=== PATIENT | male | born 1965 | race Caucasian/White ===

== ENCOUNTER → 2020-03-13 | Outpatient (REF) | payer BC ==
[2020-03-13 17:57] LABS: MAU/CREAT RATIO 7.2 MCG/MG (0.0-30.0)
== END ==
LOC: M LAB REF 16:58
PROVIDERS: ATTEND Internal Medicine Endocrinology, Diabetes & Metabolism
DX: E78.00 Pure hypercholesterolemia, unspecified (principal)

== ENCOUNTER 2024-07-03 18:41 | Inpatient (IN) | payer BC, OTHER ==
[~2024-07-03] VITALS: Ht 172.7 cm; Wt 111.0 kg
[2024-07-03] MEDS: ONDANSETRON 4MG 2ML VIAL IV ONE (19:55)
[2024-07-03] MEDS: NS 500 ML IV ONE (19:55)
[2024-07-03 21:09] LABS: BASO % 0.3 % (0.0-1.0); EOS # 0.2 10^3/uL (0.0-0.5); EOS % 2.6 % (0.0-3.0); HEMATOCRIT 44.8 % (42.0-52.0); HEMOGLOBIN 14.8 g/dl (13.5-17.5); LYMPH # 1.1 10^3/uL (1.5-5.0); LYMPH % 12.7 % (24.0-44.0); MEAN CORPUSCULAR HEMOGLOBIN 30.6 pg (27.0-33.0); MEAN CORPUSCULAR VOLUME 92.8 fl (80.0-96.0); MONO # 1.1 10^3/uL (0.0-0.8); MONO % 12.3 % (2.0-8.0); NEUTROPHILS # 6.4 10^3/uL (1.5-8.5); NEUTROPHILS % 71.7 % (36.0-66.0); PLATELET COUNT, AUTOMATED 171 10^3/uL (150-450); RED BLOOD COUNT 4.83 10^6/uL (4.30-6.10); WHITE BLOOD COUNT 8.9 10^3/uL (4.0-10.0)
[2024-07-03 21:42] LABS: ALBUMIN 2.7 G/DL (3.2-5.2); BILIRUBIN,TOTAL 5.2 MG/DL (0.3-1.2); CALCIUM LEVEL 7.6 MG/DL (8.5-10.1); CREATININE FOR GFR 3.39 MG/DL (0.70-1.30); GLOMERULAR FILTRATION RATE 19.9 (>56); POTASSIUM SERUM 5.1 MMOL/L (3.5-5.1); TOTAL PROTEIN 5.7 G/DL (5.7-8.2)
[2024-07-03] MEDS: INSULIN LISPRO (NovoLOG) PER UNIT SC SCH (23:33)
[2024-07-04] MEDS ORDERED: MOM 30ML SUSPENSION UDC PO PRN (01:15)
[2024-07-04] MEDS ORDERED: GLUCOSE 4 GM CHEW PO PRN (01:15)
[2024-07-04] MEDS ORDERED: GLUCAGON INJ 1MG VIAL SC PRN (01:15)
[2024-07-04] MEDS ORDERED: ACETAMINOPHEN 325 MG TAB PO PRN (01:15)
[2024-07-04] MEDS ORDERED: INSU100V3 SQ (01:52)
[2024-07-04] MEDS ORDERED: ASPI81TA26 PO (01:52)
[2024-07-04] MEDS ORDERED: ATOR80TA59 PO (01:52)
[2024-07-04] MEDS ORDERED: HUMA100I5 SC (01:52)
[2024-07-04] MEDS ORDERED: BUSP15TA47 PO (01:52)
[2024-07-04] MEDS ORDERED: POTA-298 PO (01:52)
[2024-07-04] MEDS ORDERED: LEVO112T2 PO (01:52)
[2024-07-04] MEDS ORDERED: SPIR-10 PO (01:52)
[2024-07-04] MEDS ORDERED: CIAL20TA PO (01:52)
[2024-07-04] MEDS ORDERED: METO1TAB87 PO (01:52)
[2024-07-04] MEDS ORDERED: FURO40TA2 PO (01:52)
[2024-07-04] MEDS ORDERED: TORS100T PO (01:52)
[2024-07-04] MEDS ORDERED: BUPR-597 PO (01:52)
[2024-07-04] MEDS ORDERED: METF750T36 PO (01:52)
[2024-07-04] MEDS ORDERED: VENL150C43 PO (01:52)
[2024-07-04] MEDS ORDERED: HOME MED LIST COMPLETE! XX SCH (01:55)
[2024-07-04 02:37] LABS: MAGNESIUM LEVEL 2.9 MG/DL (1.8-2.4)
[2024-07-04 03:17] LABS: PROCALCITONIN 1.17 ng/ml
[2024-07-04] MEDS: MIDODRINE 5 MG TAB PO ONE (04:27)
[2024-07-04] MEDS: FUROSEMIDE 100MG/10ML VIAL IV ONE (04:27)
[2024-07-04] MEDS: cefTRIAXone SOD 2 GM in DEXTROSE 5% (D5W) ADV/MINI-BAG 50 ML IV SCH (05:07)
[2024-07-04 06:24] LABS: HEMATOCRIT 47.1 % (42.0-52.0); HEMOGLOBIN 15.5 g/dl (13.5-17.5); MEAN CORPUSCULAR HGB CONC 32.9 g/dl (32.0-36.5); MEAN CORPUSCULAR VOLUME 91.3 fl (80.0-96.0); PLATELET COUNT, AUTOMATED 197 10^3/uL (150-450); RED BLOOD COUNT 5.16 10^6/uL (4.30-6.10); WHITE BLOOD COUNT 9.4 10^3/uL (4.0-10.0)
[2024-07-04] MEDS: DOXYCYCLINE HYCLATE 100 MG in DEXTROSE 5% (D5W) MINI-BAG PLU 100 ML IV SCH (06:40)
[2024-07-04] MEDS: LEVOTHYROXINE 112MCG TABLET (0.112MG) PO SCH (06:55)
[2024-07-04 07:03] LABS: HEPATITIS B SURFACE ANTIBODY NEGATIVE (POSITIVE)
[2024-07-04 07:16] LABS: HEPATITIS B SURFACE ANTIGEN NEGATIVE (NEGATIVE)
[2024-07-04 07:36] LABS: HEPATITIS B CORE ANTIBODY IGM NEGATIVE (NEGATIVE)
[2024-07-04 07:37] LABS: ALBUMIN 2.9 G/DL (3.2-5.2); ALKALINE PHOSPHATASE 433 U/L (40-129); ALT/SGPT 2009 U/L (7.0-40); AST/SGOT 2087 U/L (<34); BILIRUBIN,TOTAL 5.9 MG/DL (0.3-1.2); BLOOD UREA NITROGEN 61 MG/DL (9-23); CALCIUM LEVEL 7.8 MG/DL (8.5-10.1); CARBON DIOXIDE LEVEL 25 MMOL/L (20-31); CHLORIDE LEVEL 94 MMOL/L (98-107); CREATININE FOR GFR 3.98 MG/DL (0.70-1.30); FERRITIN 2158.1 NG/ML (10.5-307.3); GLOMERULAR FILTRATION RATE 16.5 (>56); GLUCOSE, FASTING 113 MG/DL (60-100); POTASSIUM SERUM 5.2 MMOL/L (3.5-5.1); SODIUM LEVEL 130 MMOL/L (136-145); TOTAL PROTEIN 6.1 G/DL (5.7-8.2)
[2024-07-04 07:58] LABS: CK-MB VALUE MASS 5.4 NG/ML (<3.6)
[2024-07-04 08:10] LABS: MB/CK RELATIVE INDEX 0.46 (< OR =4)
[2024-07-04] MEDS ORDERED: METOPROLOL TART 25 MG TABLET PO SCH (09:00)
[2024-07-04] MEDS ORDERED: POTASSIUM CHLORIDE 10MEQ SR TABLET PO SCH (09:00)
[2024-07-04] MEDS ORDERED: SPIRONOLACTONE 25 MG TAB PO SCH (09:00)
[2024-07-04] MEDS ORDERED: FUROSEMIDE 40MG/4ML VIAL IV SCH (09:00)
[2024-07-04] MEDS: HEPARIN SOD (PORCINE) 5000UNITS/ML 1ML VIAL/SYRINGE SC SCH (09:12)
[2024-07-04] MEDS: VENLAFAXINE **XR** 75MG CAPSULE PO SCH (09:13)
[2024-07-04] MEDS: buPROPion **XL** TABLET 150MG (WELLBUTRIN XL) PO SCH (09:13)
[2024-07-04] MEDS: ASPIRIN 81MG ENTERIC TABLET PO SCH (09:14)
[2024-07-04] MEDS: busPIRone 5 MG TAB PO SCH (09:14)
[2024-07-04] MEDS: INSULIN LISPRO (NovoLOG) PER UNIT SC SCH (09:14)
[2024-07-04 09:24] LABS: INR 1.92; PARTIAL THROMBOPLASTIN TIME 31.8 SECONDS (24.8-34.2); PROTHROMBIN TIME 22.1 SECONDS (12.5-14.5)
[2024-07-04 11:36] LABS: KETONE, URINE AUTO RFX NEGATIVE (NEGATIVE); LEUKOCYTE ESTERASE UR AUTO RFX NEGATIVE (NEGATIVE); MUCUS, URINE RFX SMALL (NEGATIVE); NITRITE, URINE AUTO RFX NEGATIVE (NEGATIVE); RBC, URINE AUTO RFX 6 /HPF (0-3); SQUAM EPITHELIAL CELL UR AURFX 1 /HPF (0-6)
[2024-07-04 11:37] LABS: WBC, URINE AUTO RFX 21 /HPF (0-3)
[2024-07-04] MEDS ORDERED: INSULIN PUMP (PATIENT'S OWN MED) SC SCH (13:55)
[2024-07-04] MEDS: FUROSEMIDE injection 100 MG, VIAL 2 BAG 13MM ADAPTER 1 EACH in NS 100 ML IV SCH (15:04)
[2024-07-04 17:09] VITALS: BP 95/63; TEMP 97.6; O2SAT 97
[2024-07-04 19:20] VITALS: BP 97/64; TEMP 97.8; O2SAT 94
[2024-07-04] MEDS: DOXYCYCLINE HYCLATE 100MG TABLET PO SCH (20:21)
[2024-07-04] MEDS ORDERED: INSULIN LISPRO (NovoLOG) PER UNIT SC SCH (21:00)
[2024-07-04 23:14] VITALS: BP 82/48; TEMP 97.9; O2SAT 95
[2024-07-04 23:45] VITALS: BP 104/65
[2024-07-05 04:00] VITALS: BP 116/69; TEMP 96.8; O2SAT 96
[2024-07-05] MEDS: DEXTROSE 50% 50ML SYRINGE IV PRN (05:32)
[2024-07-05 06:23] LABS: HEMOGLOBIN 14.1 g/dl (13.5-17.5); MEAN CORPUSCULAR HEMOGLOBIN 29.7 pg (27.0-33.0); MEAN CORPUSCULAR HGB CONC 32.8 g/dl (32.0-36.5); MEAN CORPUSCULAR VOLUME 90.5 fl (80.0-96.0); PLATELET COUNT, AUTOMATED 158 10^3/uL (150-450); RED BLOOD COUNT 4.75 10^6/uL (4.30-6.10); WHITE BLOOD COUNT 8.5 10^3/uL (4.0-10.0)
[2024-07-05 06:52] LABS: CK-MB VALUE MASS 5.5 NG/ML (<3.6)
[2024-07-05 06:55] LABS: MB/CK RELATIVE INDEX 0.53 (< OR =4)
[2024-07-05 07:38] LABS: ALBUMIN 2.5 G/DL (3.2-5.2); BILIRUBIN,TOTAL 7.5 MG/DL (0.3-1.2); CALCIUM LEVEL 7.4 MG/DL (8.5-10.1); CREATININE FOR GFR 5.24 MG/DL (0.70-1.30); POTASSIUM SERUM 4.7 MMOL/L (3.5-5.1); TOTAL PROTEIN 5.5 G/DL (5.7-8.2)
[2024-07-05 07:43] VITALS: BP 104/71; TEMP 97.5; O2SAT 96
[2024-07-05 12:04] VITALS: BP 105/71; TEMP 98; O2SAT 96
[2024-07-05 12:41] LABS: COMPLEMENT C3 92.5 MG/DL (90.0-170.0); COMPLEMENT C4 17.8 MG/DL (12-36)
[2024-07-05 12:49] LABS: HEPATITIS B SURFACE ANTIBODY NEGATIVE (POSITIVE)
[2024-07-05 13:00] LABS: HEPATITIS B SURFACE ANTIGEN NEGATIVE (NEGATIVE)
[2024-07-05 13:21] LABS: HEPATITIS C VIRUS ABY INDEX 0.14 INDEX (<0.8)
[2024-07-05 13:22] LABS: HEPATITIS B CORE ANTIBODY IGM NEGATIVE (NEGATIVE)
[2024-07-05] MEDS ORDERED: SODIUM CHLORIDE 0.9% 1000 ML IV PRN (13:35)
[2024-07-05] MEDS ORDERED: HEPARIN 1,000UNITS/ML 10ML VIAL (FOR RADIOLOGY & DIALYSIS ONLY) IV PRN (13:40)
[2024-07-05] MEDS ORDERED: LIDOCAINE 1% SDV 5ML VIAL SC PRN (13:40)
[2024-07-05] MEDS: MIDODRINE 5 MG TAB PO SCH (14:51)
[2024-07-05 15:47] LABS: HEPATITIS A IgG TOTAL REACTIVE (NON-REACTIVE)
[2024-07-05] MEDS: HEPARIN 1,000UNITS/ML 10ML VIAL (FOR RADIOLOGY & DIALYSIS ONLY) XX SCH (15:55)
[2024-07-05 18:19] VITALS: BP 110/67; TEMP 97.7; O2SAT 95
[2024-07-05 20:00] VITALS: BP 118/74; TEMP 97.6; O2SAT 96
[2024-07-05 23:50] VITALS: BP 111/60; TEMP 97.6; O2SAT 96
[2024-07-06 04:14] VITALS: BP 101/59; TEMP 97.7; O2SAT 96
[2024-07-06] MEDS ORDERED: LIDOCAINE 1% SDV 5ML VIAL SC PRN ×2 (06:00)
[2024-07-06] MEDS ORDERED: HEPARIN 1,000UNITS/ML 10ML VIAL (FOR RADIOLOGY & DIALYSIS ONLY) IV PRN ×2 (06:00)
[2024-07-06] MEDS ORDERED: SODIUM CHLORIDE 0.9% 1000 ML IV PRN ×2 (06:00)
[2024-07-06] MEDS ORDERED: HEPARIN 1,000UNITS/ML 10ML VIAL (FOR RADIOLOGY & DIALYSIS ONLY) XX SCH (06:00)
[2024-07-06 07:48] VITALS: BP 98/60; TEMP 97.6; O2SAT 97
[2024-07-06 07:50] LABS: HEMATOCRIT 42.2 % (42.0-52.0); HEMOGLOBIN 14.2 g/dl (13.5-17.5); MEAN CORPUSCULAR HEMOGLOBIN 30.6 pg (27.0-33.0); MEAN CORPUSCULAR HGB CONC 33.6 g/dl (32.0-36.5); MEAN CORPUSCULAR VOLUME 90.9 fl (80.0-96.0); PLATELET COUNT, AUTOMATED 118 10^3/uL (150-450); RED BLOOD COUNT 4.64 10^6/uL (4.30-6.10); WHITE BLOOD COUNT 7.3 10^3/uL (4.0-10.0)
[2024-07-06 08:02] LABS: T P ELECTROPHORESIS SO 5.6 g/dL (6.1-8.1)
[2024-07-06 08:17] LABS: CK-MB VALUE MASS 4.9 NG/ML (<3.6)
[2024-07-06 08:21] LABS: MB/CK RELATIVE INDEX 0.74 (< OR =4)
[2024-07-06 08:52] LABS: ALBUMIN 2.4 G/DL (3.2-5.2); BILIRUBIN,TOTAL 9.5 MG/DL (0.3-1.2); CALCIUM LEVEL 7.6 MG/DL (8.5-10.1); CREATININE FOR GFR 5.19 MG/DL (0.70-1.30); GLOMERULAR FILTRATION RATE 12.2 (>56); POTASSIUM SERUM 5.1 MMOL/L (3.5-5.1); TOTAL PROTEIN 5.4 G/DL (5.7-8.2)
[2024-07-06 08:58] LABS: HCV RNA QUANTITATION <15 NOT DETECTED IU/mL (NOT DETECTED); HCV RNA log10 <1.18 NOT DETECTED Log IU/mL (NOT DETECTED)
[2024-07-06] MEDS: HEPARIN 1,000UNITS/ML 10ML VIAL (FOR RADIOLOGY & DIALYSIS ONLY) XX SCH (09:23)
[2024-07-06 12:49] VITALS: BP 96/55; TEMP 97.7; O2SAT 98
[2024-07-06 13:02] LABS: HEPATITIS B CORE ANTIBODY IGG NON-REACTIVE (NON-REACTIVE)
[2024-07-06 14:11] LABS: FREE KAPPA LIGHT CHAINS SERUM 95.1 mg/L (3.3-19.4); FREE LAMBDA LIGHT CHAINS SERUM 36.3 mg/L (5.7-26.3); KAPPA/LAMBDA RATIO SERUM 2.62 (0.26-1.65)
[2024-07-06 16:51] VITALS: BP 100/57; TEMP 97.4; O2SAT 95
[2024-07-06 19:17] VITALS: BP 101/64; TEMP 97; O2SAT 94
[2024-07-06 23:06] VITALS: BP 109/63; TEMP 97.2; O2SAT 93
[2024-07-07] VITALS (7 sets, daily range): BP systolic 102–130; BP diastolic 68–82; TEMP 97–97.6; O2SAT 93–96
[2024-07-07 05:48] LABS: MEAN CORPUSCULAR HGB CONC 33.3 g/dl (32.0-36.5); MEAN CORPUSCULAR VOLUME 90.1 fl (80.0-96.0); PLATELET COUNT, AUTOMATED 100 10^3/uL (150-450); RED BLOOD COUNT 4.66 10^6/uL (4.30-6.10); WHITE BLOOD COUNT 7.2 10^3/uL (4.0-10.0)
[2024-07-07 06:09] LABS: CK-MB VALUE MASS 6.8 NG/ML (<3.6)
[2024-07-07 06:10] LABS: ALBUMIN 2.3 G/DL (3.2-5.2); BILIRUBIN,TOTAL 9.1 MG/DL (0.3-1.2); CALCIUM LEVEL 7.3 MG/DL (8.5-10.1); CREATININE FOR GFR 5.07 MG/DL (0.70-1.30); GLOMERULAR FILTRATION RATE 12.5 (>56); POTASSIUM SERUM 5.4 MMOL/L (3.5-5.1); TOTAL PROTEIN 5.3 G/DL (5.7-8.2)
[2024-07-07 06:12] LABS: MB/CK RELATIVE INDEX 1.86 (< OR =4)
[2024-07-07] MEDS ORDERED: SODIUM CHLORIDE 0.9% 1000 ML IV PRN (06:25)
[2024-07-07] MEDS ORDERED: HEPARIN 1,000UNITS/ML 10ML VIAL (FOR RADIOLOGY & DIALYSIS ONLY) IV PRN (06:25)
[2024-07-07] MEDS ORDERED: INSULIN LISPRO (NovoLOG) PER UNIT SC SCH ×2 (07:30→21:00)
[2024-07-07] MEDS ORDERED: CEFTRIAXONE SOD IV SCH (07:37)
[2024-07-07] MEDS ORDERED: NS IV SCH (07:37)
[2024-07-07] MEDS ORDERED: LEVEMIR (INSULIN DETEMIR) 1 UNITS/0.01ML SC SCH (09:00)
[2024-07-07] MEDS: HEPARIN 1,000UNITS/ML 10ML VIAL (FOR RADIOLOGY & DIALYSIS ONLY) XX SCH (09:57)
[2024-07-07 12:57] LABS: ANTI-MITOCHONDRIAL ANTIBODY Negative (Negative)
[2024-07-07] MEDS: PANTOPRAZOLE 40MG VIAL IV ONE (21:39)
[2024-07-08 01:52] LABS: ANTI-SMOOTH MUSCLE ANTIBODY < 20 U (<20)
[2024-07-08 03:23] VITALS: BP 101/70; TEMP 97.3; O2SAT 96
[2024-07-08] MEDS: NS IV SCH (05:28)
[2024-07-08] MEDS: CEFTRIAXONE SOD IV SCH (05:28)
[2024-07-08 06:19] LABS: HEMATOCRIT 42.6 % (42.0-52.0); HEMOGLOBIN 13.9 g/dl (13.5-17.5); MEAN CORPUSCULAR HEMOGLOBIN 29.2 pg (27.0-33.0); MEAN CORPUSCULAR HGB CONC 32.6 g/dl (32.0-36.5); MEAN CORPUSCULAR VOLUME 89.5 fl (80.0-96.0); RED BLOOD COUNT 4.76 10^6/uL (4.30-6.10); WHITE BLOOD COUNT 7.2 10^3/uL (4.0-10.0)
[2024-07-08 06:41] LABS: PLATELET COUNT, AUTOMATED 78 10^3/uL (150-450)
[2024-07-08 06:42] LABS: CK-MB VALUE MASS 4.4 NG/ML (<3.6)
[2024-07-08 06:43] LABS: ALBUMIN 2.3 G/DL (3.2-5.2); BILIRUBIN,TOTAL 6.8 MG/DL (0.3-1.2); CALCIUM LEVEL 7.6 MG/DL (8.5-10.1); CREATININE FOR GFR 4.56 MG/DL (0.70-1.30); GLOMERULAR FILTRATION RATE 14.1 (>56); POTASSIUM SERUM 4.4 MMOL/L (3.5-5.1); TOTAL PROTEIN 5.5 G/DL (5.7-8.2)
[2024-07-08 07:33] VITALS: BP 108/70; TEMP 98.9; O2SAT 95
[2024-07-08 11:27] VITALS: BP 128/86; TEMP 96.9; O2SAT 96
[2024-07-08 13:16] VITALS: BP 119/78
[2024-07-08 15:54] VITALS: BP 117/59; TEMP 97.1; O2SAT 96
[2024-07-08] MEDS ORDERED: MIDODRINE 5 MG TAB PO SCH (16:00)
[2024-07-08] MEDS: MIDODRINE 5 MG TAB PO SCH (16:45)
[2024-07-08 18:07] LABS: COMPLEMENT TOTAL (CH50) 46 U/mL (31-60)
[2024-07-08 18:38] LABS: FREE KAPPA LIGHT CHAINS URINE 100.04 mg/L (<=32.90); FREE LAMBDA LIGHT CHAINS URINE 25.34 mg/L (<=3.79); KAPPA/LAMBDA RATIO URINE 3.95 (<=8.69)
[2024-07-08 20:03] VITALS: BP 120/84; TEMP 96.8; O2SAT 95
[2024-07-08 23:53] LABS: LIVER-KIDNEY MICROSOMAL ABY <= 20.0 U (<=20.0)
[2024-07-09 03:19] VITALS: BP 112/56; TEMP 97.3; O2SAT 92
[2024-07-09] MEDS ORDERED: HEPARIN 1,000UNITS/ML 10ML VIAL (FOR RADIOLOGY & DIALYSIS ONLY) IV PRN (06:00)
[2024-07-09] MEDS ORDERED: SODIUM CHLORIDE 0.9% 1000 ML IV PRN (06:00)
[2024-07-09 06:38] LABS: HEMATOCRIT 41.2 % (42.0-52.0); HEMOGLOBIN 14.1 g/dl (13.5-17.5); MEAN CORPUSCULAR HGB CONC 34.2 g/dl (32.0-36.5); MEAN CORPUSCULAR VOLUME 87.7 fl (80.0-96.0); PLATELET COUNT, AUTOMATED 106 10^3/uL (150-450); WHITE BLOOD COUNT 7.9 10^3/uL (4.0-10.0)
[2024-07-09 07:08] LABS: ALBUMIN 2.3 G/DL (3.2-5.2); BILIRUBIN,TOTAL 5.8 MG/DL (0.3-1.2); CALCIUM LEVEL 7.6 MG/DL (8.5-10.1); CK-MB VALUE MASS 4.4 NG/ML (<3.6); CREATININE FOR GFR 4.5 MG/DL (0.70-1.30); GLOMERULAR FILTRATION RATE 14.4 (>56); POTASSIUM SERUM 4.6 MMOL/L (3.5-5.1); TOTAL PROTEIN 5.7 G/DL (5.7-8.2)
[2024-07-09 07:15] LABS: MB/CK RELATIVE INDEX 2.37 (< OR =4)
[2024-07-09 07:45] VITALS: BP 122/78; TEMP 97; O2SAT 94
[2024-07-09] MEDS: HEPARIN 1,000UNITS/ML 10ML VIAL (FOR RADIOLOGY & DIALYSIS ONLY) XX SCH (09:37)
[2024-07-09 12:36] VITALS: BP 110/75; TEMP 97.8; O2SAT 95
[2024-07-09 16:24] VITALS: BP 108/75; TEMP 97.1; O2SAT 95
[2024-07-09] MEDS: TAMSULOSIN 0.4 MG CAP PO SCH (16:31)
[2024-07-09 17:26] LABS: ANA SCREEN, IFA NEGATIVE (NEGATIVE)
[2024-07-09 18:30] VITALS: BP 120/79; TEMP 97.3; O2SAT 95
[2024-07-09 20:17] VITALS: BP 120/80; TEMP 97.2; O2SAT 93
[2024-07-10 01:38] LABS: Antimyeloperxidase(MPO) Abs < 1.0 AI (<1.0); Antiproteinase 3 (PR-3) Abs < 1.0 AI (<1.0)
[2024-07-10 05:26] VITALS: BP 118/79; TEMP 97; O2SAT 92
[2024-07-10 06:40] LABS: HEMATOCRIT 41.4 % (42.0-52.0); HEMOGLOBIN 13.9 g/dl (13.5-17.5); MEAN CORPUSCULAR HEMOGLOBIN 29.8 pg (27.0-33.0); MEAN CORPUSCULAR HGB CONC 33.6 g/dl (32.0-36.5); MEAN CORPUSCULAR VOLUME 88.8 fl (80.0-96.0); RED BLOOD COUNT 4.66 10^6/uL (4.30-6.10); WHITE BLOOD COUNT 6.5 10^3/uL (4.0-10.0)
[2024-07-10 07:05] LABS: ALBUMIN 2.2 G/DL (3.2-5.2); BILIRUBIN,TOTAL 5.6 MG/DL (0.3-1.2); CALCIUM LEVEL 7.5 MG/DL (8.5-10.1); CREATININE FOR GFR 3.56 MG/DL (0.70-1.30); GLOMERULAR FILTRATION RATE 18.8 (>56); POTASSIUM SERUM 4.7 MMOL/L (3.5-5.1); TOTAL PROTEIN 5.5 G/DL (5.7-8.2)
[2024-07-10 07:13] LABS: PLATELET COUNT, AUTOMATED 58 10^3/uL (150-450)
[2024-07-10 08:22] LABS: ALBUMIN SPEP 2.9 g/dL (3.8-4.8); ALPHA-1-GLOBULINS SO 0.4 g/dL (0.2-0.3); ALPHA-2-GLOBULINS SO 0.5 g/dL (0.5-0.9); ANCA SCREEN REFLEX Negative (Negative); BETA 2 GLOBULIN 0.4 g/dL (0.2-0.5); BETA-GLOBULIN SO 0.3 g/dL (0.4-0.6)
[2024-07-10 08:52] LABS: ANA SCREEN, IFA Negative (Negative)
[2024-07-10] MEDS: FUROSEMIDE 100MG/10ML VIAL IV ONE (10:48)
[2024-07-10 12:00] VITALS: BP 112/70; TEMP 97.6; O2SAT 95
[2024-07-10] MEDS: FAMOTIDINE 20 MG TAB PO SCH (13:18)
[2024-07-10] MEDS ORDERED: ceFAZolin 2 GM/D5W 50 ML IV BAG As Ordered ONE (14:23)
[2024-07-10] MEDS: NS (Normal Saline) 0.9% 1,000 ML IV SCH (14:25)
[2024-07-10] MEDS: ceFAZolin SOD 2 GM in IV 1 EA IV ONE (15:03)
[2024-07-10] MEDS ORDERED: LIDOCAINE 1% MDV 20ML VIAL As Ordered ONE (15:21)
[2024-07-10] MEDS: HEPARIN 1,000UNITS/ML 10ML VIAL (FOR RADIOLOGY & DIALYSIS ONLY) IV PRN (16:11)
[2024-07-10] MEDS: LIDOCAINE 1% MDV 20ML VIAL SQ ONE (16:13)
[2024-07-10 20:00] VITALS: BP 99/67; TEMP 97; O2SAT 94
[2024-07-11 04:00] VITALS: BP 103/67; TEMP 97; O2SAT 96
[2024-07-11] MEDS ORDERED: HEPARIN 1,000UNITS/ML 10ML VIAL (FOR RADIOLOGY & DIALYSIS ONLY) IV PRN (06:00)
[2024-07-11] MEDS ORDERED: HEPARIN 1,000UNITS/ML 10ML VIAL (FOR RADIOLOGY & DIALYSIS ONLY) XX SCH (06:00)
[2024-07-11] MEDS ORDERED: SODIUM CHLORIDE 0.9% 1000 ML IV PRN (06:00)
[2024-07-11 06:33] LABS: ALBUMIN 2.3 G/DL (3.2-5.2); CALCIUM LEVEL 7.5 MG/DL (8.5-10.1); CREATININE FOR GFR 3.39 MG/DL (0.70-1.30); GLOMERULAR FILTRATION RATE 19.9 (>56); PHOSPHORUS LEVEL 4.5 MG/DL (2.5-4.9); POTASSIUM SERUM 4.1 MMOL/L (3.5-5.1)
[2024-07-11 06:36] LABS: CORTISOL AM 19.4 UG/DL (4.3-22.4)
[2024-07-11] MEDS: FUROSEMIDE 100MG/10ML VIAL IV SCH (07:53)
[2024-07-11] MEDS: SENOKOT S TAB PO SCH (07:53)
[2024-07-11 08:00] VITALS: BP 118/78; TEMP 96.8; O2SAT 98
[2024-07-11 12:15] VITALS: BP 117/77; TEMP 97.3
[2024-07-11] MEDS: CEFDINIR 300 MG CAP (OMNICEF) PO SCH (16:51)
[2024-07-11 19:53] VITALS: BP 117/75; TEMP 97.5; O2SAT 98
[2024-07-12 00:41] VITALS: BP 95/60
[2024-07-12 04:00] VITALS: BP 102/64; TEMP 97.2; O2SAT 98
[2024-07-12 07:23] LABS: ALBUMIN 2.3 G/DL (3.2-5.2); CALCIUM LEVEL 7.7 MG/DL (8.5-10.1); CREATININE FOR GFR 3.26 MG/DL (0.70-1.30); GLOMERULAR FILTRATION RATE 20.8 (>56); PHOSPHORUS LEVEL 3.9 MG/DL (2.5-4.9)
[2024-07-12 12:00] VITALS: BP 118/80; TEMP 96.8
[2024-07-12 20:08] VITALS: BP 119/80; TEMP 97.2; O2SAT 98
[2024-07-13 02:00] VITALS: BP 109/73; TEMP 96.8; O2SAT 96
[2024-07-13 08:00] VITALS: BP 110/78; TEMP 98.7; O2SAT 98
[2024-07-13 08:08] LABS: PLATELET COUNT, AUTOMATED 152 10^3/uL (150-450)
[2024-07-13 08:33] LABS: ALBUMIN 2.3 G/DL (3.2-5.2); CALCIUM LEVEL 7.7 MG/DL (8.5-10.1); CREATININE FOR GFR 2.98 MG/DL (0.70-1.30); GLOMERULAR FILTRATION RATE 23.1 (>56); PHOSPHORUS LEVEL 4.1 MG/DL (2.5-4.9); POTASSIUM SERUM 3.5 MMOL/L (3.5-5.1)
[2024-07-13] MEDS: POTASSIUM CHLORIDE 10MEQ SR TABLET PO ONE (10:41)
[2024-07-13] MEDS: SPIRONOLACTONE 25 MG TAB PO SCH (10:41)
[2024-07-13 11:35] VITALS: BP 130/86; TEMP 97; O2SAT 98
[2024-07-13] MEDS: TORSEMIDE 100 MG TAB PO SCH (16:06)
[2024-07-13] MEDS: RIVAROXABAN 10MG TAB (XARELTO) PO SCH (20:11)
[2024-07-13 20:17] VITALS: BP 95/64; TEMP 97.3; O2SAT 96
[2024-07-14 05:59] VITALS: BP 109/77; TEMP 97.3; O2SAT 98
[2024-07-14 06:23] LABS: ALBUMIN 2.2 G/DL (3.2-5.2); CALCIUM LEVEL 7.4 MG/DL (8.5-10.1); CREATININE FOR GFR 2.55 MG/DL (0.70-1.30); GLOMERULAR FILTRATION RATE 27.6 (>56); PHOSPHORUS LEVEL 4.3 MG/DL (2.5-4.9); POTASSIUM SERUM 3.7 MMOL/L (3.5-5.1)
[2024-07-14] MEDS: BISACODYL 10MG SUPP PR ONE (10:45)
[2024-07-14 12:20] VITALS: BP 111/75; TEMP 97.3; O2SAT 99
[2024-07-14 20:14] VITALS: BP 112/78; TEMP 97.3; O2SAT 97
[2024-07-14] MEDS: BISACODYL 10MG SUPP PR SCH (20:40)
[2024-07-15 04:29] VITALS: BP 96/61; TEMP 97.2; O2SAT 94
[2024-07-15 07:59] LABS: CALCIUM LEVEL 7.7 MG/DL (8.5-10.1); CREATININE FOR GFR 2.39 MG/DL (0.70-1.30); GLOMERULAR FILTRATION RATE 29.8 (>56); MAGNESIUM LEVEL 1.5 MG/DL (1.8-2.4); POTASSIUM SERUM 3.8 MMOL/L (3.5-5.1)
[2024-07-15 08:35] VITALS: BP 105/70; O2SAT 93
[2024-07-15 11:52] VITALS: BP 108/72; TEMP 97.2; O2SAT 97
[2024-07-15 12:00] VITALS: BP 111/65; TEMP 97.3; O2SAT 98
[2024-07-15] MEDS: MAG SULF 1GM/100ML (MAG RUN) 1 GM in IV 1 EA IV SCH (12:42)
[2024-07-15] MEDS: MAGNESIUM OXIDE 400MG TAB (MAG-OX) PO SCH (17:05)
[2024-07-15 17:07] VITALS: BP 110/73
[2024-07-15 19:59] VITALS: BP 114/74; TEMP 97.2; O2SAT 95
[2024-07-16 04:29] VITALS: BP 112/76; TEMP 97.3; O2SAT 94
[2024-07-16 07:40] LABS: ALBUMIN 2.5 G/DL (3.2-5.2); CALCIUM LEVEL 7.9 MG/DL (8.5-10.1); CREATININE FOR GFR 2.46 MG/DL (0.70-1.30); GLOMERULAR FILTRATION RATE 28.8 (>56); MAGNESIUM LEVEL 2.1 MG/DL (1.8-2.4); POTASSIUM SERUM 3.4 MMOL/L (3.5-5.1); TOTAL PROTEIN 5.8 G/DL (5.7-8.2)
[2024-07-16] MEDS: TORSEMIDE 100 MG TAB PO SCH (09:11)
[2024-07-16 09:14] VITALS: BP 108/72
[2024-07-16] MEDS ORDERED: TORS100T PO (10:25)
[2024-07-16] MEDS ORDERED: MAGN400T2 PO (10:25)
[2024-07-16] MEDS ORDERED: MIDO5TA PO (10:25)
[2024-07-16] MEDS ORDERED: POTA-298 PO (10:26)
[2024-07-16] MEDS: POTASSIUM CHLORIDE 10MEQ SR TABLET PO SCH (11:29)
[2024-07-16] MEDS: KCL 10MEQ/100ML SWI (KRUN) 10 MEQ in IV 1 EA IV ONE (11:30)
[2024-07-16] MEDS ORDERED: FLOM0.4C39 PO (11:40)
[2024-07-16 12:00] VITALS: BP 109/64; TEMP 97.5; O2SAT 98
== END 2024-07-16 17:00 | disposition home health service (06) | DRG 194 ==
LOC: M ED 18:41 → M ED INP 07-04 02:02 → M PCU 07-04 16:58 → M MS5PR 07-09 18:37
PROVIDERS: ADMIT Student in an Organized Health Care Education/Training Program; ATTEND Student in an Organized Health Care Education/Training Program
PROC: 02HV33Z Insertion of Infusion Device into Superior Vena Cava, Percutaneous Approach (ICD-10-PCS; 2024-07-05)
PROC: 5A1D70Z Performance of Urinary Filtration, Intermittent, Less than 6 Hours Per Day (ICD-10-PCS; 2024-07-07)
PROC: B246ZZZ Ultrasonography of Right and Left Heart (ICD-10-PCS; principal; 2024-07-08)
DX: I13.0 Hypertensive heart and chronic kidney disease with heart failure and stage 1 through stage 4 chronic kidney disease, or unspecified chronic kidney disease (principal); N17.9 Acute kidney failure, unspecified; J18.9 Pneumonia, unspecified organism; I95.9 Hypotension, unspecified; E87.20 Acidosis, unspecified; M62.82 Rhabdomyolysis; E10.22 Type 1 diabetes mellitus with diabetic chronic kidney disease; E10.649 Type 1 diabetes mellitus with hypoglycemia without coma; E87.1 Hypo-osmolality and hyponatremia; E87.5 Hyperkalemia; G47.33 Obstructive sleep apnea (adult) (pediatric); K21.9 Gastro-esophageal reflux disease without esophagitis; F41.9 Anxiety disorder, unspecified; F32.A Depression, unspecified; R74.01 Elevation of levels of liver transaminase levels; R33.9 Retention of urine, unspecified; E80.6 Other disorders of bilirubin metabolism; Z79.82 Long term (current) use of aspirin; Z79.4 Long term (current) use of insulin; Z79.890 Hormone replacement therapy; Z79.899 Other long term (current) drug therapy; I25.10 Atherosclerotic heart disease of native coronary artery without angina pectoris; N18.9 Chronic kidney disease, unspecified; E87.6 Hypokalemia; I50.33 Acute on chronic diastolic (congestive) heart failure